=== PATIENT | male | born 1950 | race Caucasian/White ===

== ENCOUNTER 2022-03-24 16:13 | Emergency (ER) | payer MEDICARE, BC, SELFPAY ==
[2022-03-24 16:43] VITALS: BP 196/89; PULSE 75; RESP 18; TEMP 36.6; O2SAT 96; BMI 28.1
[2022-03-24] MEDS: LIDOCAINE 1 % PF 30 ML INJECTION (17:05)
--- NOTE | 2022-03-24 17:07 | ED.WOUNDLAC ---
HPI - Wound/Laceration General Date Seen: 03/24/22 Chief Complaint: Laceration/Wound Stated Complaint: Thumb Lac Time Seen by Provider: 03/24/22 16:15 Source: patient Mode of arrival: ambulatory Limitations: no limitations History of Present Illness HPI narrative: 71-year-old gentleman presents here with family, for evaluation of a left thumb cut, he did this with [employer] knife while trying to open a gift, it bled a fair bit, and he came in for possible sutures. Does not really hurt, this worrisome a little bit, Location: other Place: home Context: accidental Associated symptoms: none Related Data Home Medications Medication Instructions Recorded Confirmed famotidine 03/24/22 Allergies Allergy/AdvReac Type Severity Reaction Status Date / Time No Known Drug Allergies Allergy Verified 03/24/22 16:46 Review of Systems Status of ROS: Reports: 10 or more systems reviewed and unremarkable except as noted in History and below PFSH PFSH Social History Non-prescribed substance use: denies use Exam Narrative: Exam Narrative: On examination there is a laceration of his left thumb over the finger pad surface, it is the flap-type laceration, with little duskiness notable with the pedicle and distal total cut length is approximately 5 cm IP flexion is normal cap refills normal, sensation is a little bit gone over the flap, Const: Vital Signs, click to edit/add: Vital Signs - 24 hr 03/24/22 16:43 Temperature 97.9 F Pulse Rate [Right Pulse Oximeter] 75 Respiratory Rate 18 Blood Pressure [Ri ght Upper Arm] 196/89 H Pulse Oximetry 96 Oxygen Delivery Me thod Room Air Course Course Hospital Course: Six sutures are placed in the left thumb, on the pad surface, this brought the the pedicle of skin and tissue back very nicely, blood loss was less than 5 mL, inter digital block was used x6 mL of 1% lidocaine without epinephrine, sterile technique was used, post technique cap refill neurovascular status was normal, with the exception of anesthesia secondary to digital block. Vital Signs Vital signs: Initial Vital Signs Temperature 97.9 F 03/24/22 16:43 Temperature Source Temporal Artery Scan 03/24/22 16:43 Pulse Rate 75 03/24/22 16:43 Respiratory Rate 18 03/24/22 16:43 Blood Pressure 196/89 H 03/24/22 16:43 Blood Pressure Mean 124 03/24/22 16:43 Blood Pressure Position Sitting 03/24/22 16:43 Pulse Oximetry 96 03/24/22 16:43 Oxygen Delivery Method 03/24/22 16:43 Vital Signs Temperature 97.9 F 03/24/22 16:43 Pulse Rate 75 03/24/22 16:43 Respiratory Rate 18 03/24/22 16:43 Blood Pressure 196/89 H 03/24/22 16:43 Pulse Oximetry 96 03/24/22 16:43 Oxygen Delivery Method 03/24/22 16:43 Temperature 97.9 F 03/24/22 16:43 Pulse Rate 75 03/24/22 16:43 Respiratory Rate 18 03/24/22 16:43 Blood Pressure 196/89 H 03/24/22 16:43 Pulse Oximetry 96 03/24/22 16:43 Oxygen Delivery Method 03/24/22 16:43 Discharge Plan Discharge Clinical Impression: Laceration Patient Disposition: Home w/ Parent or Adult Condition: Improved Instructions: Laceration (DC) Additional Instructions: Home rest use of bandage on there for the next 12 hours then you may take it off and just use bacitracin and regular bandage, use the Stack finger splint also, for the next 7 days, you may just use a regular bandage. Sutures should come out in 10 days with your regular provider, there is 6 total. Increasing redness swelling fevers chills or pus than these is infection he should come back to be seen. Prescriptions: No Action famotidine Follow Up/Referrals: Provider,Not a Local [Primary Care Provider] - Stand Alone Forms: MyHealth Info Instructions
== END 2022-03-24 18:31 | disposition home or self-care (01) ==
PROVIDERS: Emergency Provider Family Medicine
DX: S61.012A Laceration without foreign body of left thumb without damage to nail, initial encounter (principal); W26.0XXA Contact with knife, initial encounter
CPT/HCPCS: 12001; 99283; J2001